=== PATIENT | male | born 1960 | race Caucasian/White ===

== ENCOUNTER 2022-03-16 20:20 | Inpatient (IN) | payer OTHER ==
[~2022-03-16] VITALS: Ht 180.3 cm; Wt 119.0 kg
[2022-03-16] MEDS ORDERED: VENL150ER PO (21:10)
[2022-03-16] MEDS ORDERED: OXYB5 PO (21:10)
[2022-03-16] MEDS ORDERED: DONEPEZIL HCL10 MG PO (21:11)
[2022-03-16] MEDS ORDERED: ZESTRIL40 MG PO (21:11)
[2022-03-16] MEDS ORDERED: GLIMEPIRIDE4 MG PO (21:12)
[2022-03-16] MEDS ORDERED: Crestor40 MG PO (21:12)
[2022-03-16] MEDS ORDERED: OZEMPIC1 MG/0.72 (21:13)
[2022-03-16 21:16] LABS: BASOPHILS ABSOLUTE AUTO 0.03 K/mm3 (0.00-0.23); BASOPHILS PERCENT AUTO 0 % (0-2); EOSINOPHILS PERCENT AUTO 0 % (0-6); Hematocrit 45.4 % (37.0-53.0); Hemoglobin 15.7 g/dL (13.5-17.5); IMMATURE GRAN ABSOLUTE AUTO 0.03 K/mm3 (0.00-0.10); IMMATURE GRAN PERCENT AUTO 0 % (0-1); LYMPHOCYTES ABSOLUTE AUTO 0.86 K/mm3 (0.84-5.20); LYMPHOCYTES PERCENT AUTO 6 % (21-46); MONOCYTES ABSOLUTE AUTO 0.79 K/mm3 (0.16-1.47); MONOCYTES PERCENT AUTO 5 % (4-13); Mean Corpuscular HGB 30.7 pg (26.0-34.0); Mean Corpuscular HGB Conc 34.6 g/dL (31.5-36.5); Mean Corpuscular Volume 89 fL (80-100); Mean Platelet Volume 10.1 fL (9.1-12.4); NEUTROPHILS PERCENT AUTO 88 % (41-73); Platelet Count 308 K/mm3 (150-400); RDW Coefficient Variation 12.6 % (11.7-14.2); RDW Standard Deviation 41.1 fL (35.1-46.3); Red Blood Cell Count 5.12 M/mm3 (4.30-5.90); White Blood Cell Count 14.71 K/mm3 (4.00-11.30)
[2022-03-16 21:19] LABS: Source, Urine Clean Catch
[2022-03-16 21:21] LABS: Appearance, Urine Clear (Clear); Blood, Urine 1+ (Neg); Color, Urine Amber (P-Yellow); Glucose Qualitative, Urine 2+ (Neg); Ketones, Urine 1+ (Neg); Leukocyte Esterase, Urine 1+ (Neg); Nitrite, Urine Neg (Neg); Protein, Urine 2+ (Neg); Urobilinogen, Urine 1+ (Normal)
[2022-03-16 21:31] LABS: Bilirubin, Urine 1+ (Neg)
[2022-03-16 21:33] LABS: Bacteria Many /hpf; Hyaline Casts 0-2 /lpf (0-2); Mucus Light (0-Heavy); Squamous Epithelial Cells Few /hpf (Few)
[2022-03-16 21:33] LABS: Albumin/Globulin Ratio 0.7 (0.8-1.8); Bilirubin, Total 1.1 mg/dL (0.1-1.0); Bun/Creatinine Ratio 18.5 (12.0-20.0); Calcium, Blood 8.9 mg/dL (8.5-10.1); Creatinine, Blood 0.92 mg/dL (0.60-1.20); Globulin, Blood 4.3 g/dL (2.2-4.0); Potassium, Blood 3.6 mmol/L (3.5-5.5); Total Protein, Blood 7.3 g/dL (6.4-8.2)
[2022-03-16 21:36] LABS: International Normalized Ratio 1.14; Prothrombin Time Results 11.9 Sec (9.7-11.5)
[2022-03-17] MEDS ORDERED: AMLO10 PO (00:02)
[2022-03-17] MEDS ORDERED: CLOP75 PO (00:02)
[2022-03-17] MEDS ORDERED: METF500 PO (00:02)
[2022-03-17 04:23] LABS: BASOPHILS ABSOLUTE AUTO 0.04 K/mm3 (0.00-0.23); BASOPHILS PERCENT AUTO 0 % (0-2); EOSINOPHILS PERCENT AUTO 0 % (0-6); Hematocrit 42.7 % (37.0-53.0); Hemoglobin 14.5 g/dL (13.5-17.5); IMMATURE GRAN ABSOLUTE AUTO 0.06 K/mm3 (0.00-0.10); IMMATURE GRAN PERCENT AUTO 0 % (0-1); LYMPHOCYTES PERCENT AUTO 6 % (21-46); MONOCYTES ABSOLUTE AUTO 0.77 K/mm3 (0.16-1.47); MONOCYTES PERCENT AUTO 4 % (4-13); Mean Corpuscular HGB 30.3 pg (26.0-34.0); Mean Corpuscular Volume 89 fL (80-100); Mean Platelet Volume 10.4 fL (9.1-12.4); NEUTROPHILS ABSOLUTE AUTO 17.91 K/mm3 (1.96-9.15); NEUTROPHILS PERCENT AUTO 90 % (41-73); Platelet Count 298 K/mm3 (150-400); RDW Coefficient Variation 12.7 % (11.7-14.2); RDW Standard Deviation 41.8 fL (35.1-46.3); Red Blood Cell Count 4.78 M/mm3 (4.30-5.90); White Blood Cell Count 19.98 K/mm3 (4.00-11.30)
[2022-03-17 04:55] LABS: Albumin, Blood 2.7 g/dL (3.4-5.0); Albumin/Globulin Ratio 0.7 (0.8-1.8); Bilirubin, Total 1.3 mg/dL (0.1-1.0); Bun/Creatinine Ratio 25.9 (12.0-20.0); Calcium, Blood 8.7 mg/dL (8.5-10.1); Creatinine, Blood 0.77 mg/dL (0.60-1.20); Globulin, Blood 3.9 g/dL (2.2-4.0); Magnesium, Blood 1.6 mg/dL (1.6-2.4); Potassium, Blood 3.7 mmol/L (3.5-5.5); Total Protein, Blood 6.6 g/dL (6.4-8.2)
--- NOTE | 2022-03-17 06:06 | NUR ---
admit note/shift summary Pt arrived to pcu from ed via ed stretcher at approx midnight. Pt was slid by 5 staff from ed stretcher to pcu bed. pt accompanied by . Pt alert but forgetful. answered most history questions, states pt has short term memory issues at baseline. Arrived on 4l nc. vss. Abd firm, tender. Pt c/o of 3/10 pain during noc but refused pain meds. Pt states, "ill wait until its a 5". Stood at side of bed to use urinal, requested male help. Fluids infused per jul. Abx infused per jul. pt oriented to room, call light. remained npo per orders for possible surgery in am.
--- NOTE | 2022-03-17 11:59 | NUR ---
CARE ASSUMPTION: ASSUMED CARE OF PT THIS AM APPROX 0700 AFTER RECEIVING REPORT FROM AYAKA ARZATE. PT'S SPOUSE REPORTS PT HAVING HX OF SHORT TERM MEMORY PROBLEMS, PT HAS BEEN A&Ox4 T/OUT THE MORNING. PT ANSWERING QUESTIONS APPROPRIATELY, COOPERATIVE WITH CARE. PT HAS COMPLETED 3RD LITER OF FLUIDS. LS CLEAR, DIM W/FAINT CRACKLES IN BASES. PT W/SHALLOW, TACHYPNEIC RESPIRATIONS. ST ON MONITOR, DENIES CP. ABDOMEN FIRM, TENDER TO PALPATION, STATES PAIN MOSTLY ON SIDES OF ABD, MEDICATED PER EMAR. PT SBA FOR URINAL USE. PT HAS BEEN NPO SINCE MIDNIGHT, PENDING SURGICAL INTERVENTION THIS AFTERNOON. AT THIS TIME, PT RESTING IN BED W/SPOUSE AT BEDSIDE. CALL LIGHT WITHIN REACH. WILL CONTINUE TO MONITOR AND TREAT ACCORDINGLY.
--- NOTE | 2022-03-17 13:11 | NUR ---
UPDATE: PT TO DAY SURGERY AT APPROX 1230.
--- NOTE | 2022-03-17 13:12 | NUR ---
THE PATIENT WAS BROUGHT TO DAY SURGERY FOR HIS PROCEDURE.
--- NOTE | 2022-03-17 15:03 | NUR ---
03/17/22 1503 Manuel Roldan PROCEDURE WENT FROM LAPAROSCOPIC TO OPEN @ [id number]
--- NOTE | 2022-03-17 18:28 | NUR ---
PT TRANSFER: PT TRANSFERED TO ICU AFTER SURGERY. REPORT GIVEN TO AYAKA OLSEN WHO ASSUMED CARE OF PT IN ICU.
--- NOTE | 2022-03-17 18:43 | NUR ---
PT ADMITTED TO ICU 3 FROM OR S/P RIGHT HEMICOLECTOMY AT 1658. REPORT TAKEN FROM DR TRAYLOR. PT ARRIVED ON VENT; DR UGAJARDO AT BEDSIDE. VENT:18/640/60%/8, LUNGS CLEAR T/O. ETT 24CM @TEETH, 7.5. ABD VERY DISTENDED WITH HYPERACTIVE TYMPANIC BT'S T/O. OG DIFFICULT TO PLACE, OG IN GE JUNCTION, DR GUAJARDO AWARE. WILL ATTEMPT TO ADVANCE FURTHER TOMORROW AM PER DR GUAJARDO. OG PLACED TO LIS. LARGE MID LINE RODRIGO DRAIN/DRSG C/D/I. VILLAR CATH DRAINING CLEAR YELLOW URINE. LR AT 100CC, TO CONTINUE FOR ONE ADDITIONAL LITER AFTER OR'S LR COMPLETE. PROPOFOL STARTED AT 30MCG. PT MINIMALLY RESPONSIVE; PER DR HARVEY PT WILL BE PARALYZED FOR AT LEAST 1 HR. POWERGLIDE PLACED TO OPAL.
[2022-03-18 03:43] LABS: Hematocrit 36.7 % (37.0-53.0); Hemoglobin 12.3 g/dL (13.5-17.5); Mean Corpuscular HGB 30.4 pg (26.0-34.0); Mean Corpuscular HGB Conc 33.5 g/dL (31.5-36.5); Mean Corpuscular Volume 91 fL (80-100); Mean Platelet Volume 10.9 fL (9.1-12.4); Platelet Count 268 K/mm3 (150-400); RDW Standard Deviation 43.2 fL (35.1-46.3); Red Blood Cell Count 4.05 M/mm3 (4.30-5.90); White Blood Cell Count 13.31 K/mm3 (4.00-11.30)
[2022-03-18 04:09] LABS: Bun/Creatinine Ratio 31.9 (12.0-20.0); Calcium, Blood 8.3 mg/dL (8.5-10.1); Creatinine, Blood 0.82 mg/dL (0.60-1.20); Potassium, Blood 3.6 mmol/L (3.5-5.5)
--- NOTE | 2022-03-18 07:27 | NUR ---
Assumed care of pt at 0700. Report recieved from Andres MARLEY. Pt receiving propofol at 40 mcg/kg/min, dosing weight 119 kg. On assessment, pt opened eyes and started grimacing. When asked if he is having pain, pt nods head "yes". Nods "no" when asked if pain source is abdomen, chest, or back. Nods head "yes" when asked if pain source is head. 7.5 cm ETT at expected placement of 24 cm at teeth. Vent settings ACVC 18/640/8/30%. SpO2 90% or greater. Lungs clear t/o, diminished in bases. Sinus rhythm per monitor, rate 85. BP stable.
--- NOTE | 2022-03-18 09:31 | NUR ---
Patient has been transferred to room ICU 13 from ICU 3, remaining in same bed as before. Tolerated well. Family in ICU 13 visiting with patient at this time. Update given. Fresh ice packs placed to bilateral groin and subclavian. Temp is currently 100.9 per rectal probe. This temperature correlates with pt's oral temperature.
--- NOTE | 2022-03-18 11:10 | NUR ---
Patient extubated at 1100 by RT Perez. Tolerated extubation well. Pt is wide awake and talking to his family. SpO2 98%. Restraints removed. OG tube removed at time of extubation as well. Call placed to Dr Wei to ask if he would like NG inserted. Provider states NG is not needed at this time.
--- NOTE | 2022-03-18 12:05 | NUR ---
Noted order from Dr Jorge for 60 meq potassium. Discussed with Dr Jorge. Plan to give patient this amount of potassium as pt is borderline low and NPO.
--- NOTE | 2022-03-18 12:52 | NUR ---
Upon receiving a referral for spiritual care, I visit pt. Pt tells me about his medical issues, his family and his spiritual journey from [employer] to Religious. I Ptovide threapeutic listening and prayer. Pt responds well and shows signs of an elevated mood.
--- NOTE | 2022-03-18 15:34 | NUR ---
Patient lifted into recliner. Pt able to stand and march in place with min assist. Pt steady on feet. Reports that he does get lightheaded with position changes and activity. Dr Jorge in to see patient, states patient may be surical floor status without telemetry.
--- NOTE | 2022-03-18 17:00 | NUR ---
SUMMARY Neuro: Pt A&O x 4. Answers questions, follows commands, verbalizes needs. Pleasant and cooperative with care. Pt states poor short term memory, however appears very receptive to education provided. Pt states pain that is tolerable and currently at an acceptable level. Musculoskeletal: Moves all extremities with equal strength and range of motion. Patient worked with PT today to ambulate approx 40 feet in room. Tolerated activity well. Respiratory: Lungs clear, dim in bases. SpO2 90% or greater with room air. Extubated this shift. Given incentive spirometer and educated on use. Pt has been observed using IS independently. Cardiac: Telemetry no longer ordered. HR regular. Edema unchanged from initial assessment. GI: Absent BT. Pt denies passing flatus. Remains strict NPO. : Booth catheter in place, patent and draining clear yellow urine. Skin: Unchanged from initial assessment. Psychosocial: Pt happy, pleasant and cooperative with care. Visiting with spouse at bedside.
[2022-03-19 03:35] LABS: Hematocrit 34.3 % (37.0-53.0); Hemoglobin 11.8 g/dL (13.5-17.5); Mean Corpuscular HGB 31.1 pg (26.0-34.0); Mean Corpuscular HGB Conc 34.4 g/dL (31.5-36.5); Mean Corpuscular Volume 90 fL (80-100); Mean Platelet Volume 10.3 fL (9.1-12.4); Platelet Count 272 K/mm3 (150-400); RDW Standard Deviation 43.1 fL (35.1-46.3)
[2022-03-19 03:54] LABS: Bun/Creatinine Ratio 33.1 (12.0-20.0); Calcium, Blood 8.5 mg/dL (8.5-10.1); Creatinine, Blood 0.76 mg/dL (0.60-1.20); Phosphorus, Blood 2.1 mg/dL (2.5-4.9); Potassium, Blood 3.8 mmol/L (3.5-5.5)
--- NOTE | 2022-03-19 05:39 | NUR ---
END OF SHIFT SUMMARY PT HAS HAD NO OVERNIGHT EVENTS. DURING FIRST ASSMENT I AUSCULTATED BOWEL SOUNDS AND PT HAS STATED HE HAS PASSED GAS. HE HAS BEEN LAMBERT STABLE. HE DID COMPLAIN OF PAIN TRIED 25MCC OF FENT THAT DIDNT SEEM TO WORK THEN TRIED DILAUDID AT FIRST I GAVE HALF AND THEN THE WHOLE 1MG THAT FINALY DID THE TRICK WILL CONTINUE TO MONITOR AND REPORT OFF TO ONCOMING RN
--- NOTE | 2022-03-19 08:00 | NUR ---
Assumed care of pt at 0700, report received from Irais MARLEY. Pt alert. Answers questions, follows commands, verbalizes needs. Pleasant and cooperative with care. Lethargic. States he did not sleep well last night and states he wants to stay in bed and try to sleep. SpO2 90% or greater with room air.
[2022-03-19 12:17] LABS: Source, Urine Clean Catch
--- NOTE | 2022-03-19 12:18 | NUR ---
This RN entered room and found patient to be diaphoretic. Temp 99.4 oral. Pt states the ambient temperature is acceptable, but he feels he is hot. Offered cool wash cloth and fan, pt accepts these to help with diaphoresis. Noted that pt continues to be quite lethargic and more weak compared to yesterday. Call placed to Dr Shea to notify. New orders received.
[2022-03-19 12:19] LABS: Appearance, Urine Clear (Clear); Bilirubin, Urine Neg (Neg); Blood, Urine 5+ (Neg); Color, Urine Yellow (P-Yellow); Glucose Qualitative, Urine Neg (Neg); Ketones, Urine Neg (Neg); Leukocyte Esterase, Urine Neg (Neg); Nitrite, Urine Neg (Neg); Protein, Urine 1+ (Neg); Urobilinogen, Urine NORM (Normal)
[2022-03-19 13:21] LABS: BASOPHILS ABSOLUTE AUTO 0.04 K/mm3 (0.00-0.23); BASOPHILS PERCENT AUTO 0 % (0-2); EOSINOPHILS ABSOLUTE AUTO 0.13 K/mm3 (0.00-0.68); EOSINOPHILS PERCENT AUTO 1 % (0-6); Hematocrit 41.4 % (37.0-53.0); Hemoglobin 14.1 g/dL (13.5-17.5); IMMATURE GRAN PERCENT AUTO 1 % (0-1); LYMPHOCYTES ABSOLUTE AUTO 1.73 K/mm3 (0.84-5.20); LYMPHOCYTES PERCENT AUTO 12 % (21-46); MONOCYTES ABSOLUTE AUTO 0.74 K/mm3 (0.16-1.47); MONOCYTES PERCENT AUTO 5 % (4-13); Mean Corpuscular HGB 30.7 pg (26.0-34.0); Mean Corpuscular HGB Conc 34.1 g/dL (31.5-36.5); Mean Corpuscular Volume 90 fL (80-100); Mean Platelet Volume 10.2 fL (9.1-12.4); NEUTROPHILS ABSOLUTE AUTO 11.63 K/mm3 (1.96-9.15); NEUTROPHILS PERCENT AUTO 81 % (41-73); Platelet Count 338 K/mm3 (150-400); RDW Standard Deviation 42.9 fL (35.1-46.3); White Blood Cell Count 14.37 K/mm3 (4.00-11.30)
[2022-03-19 13:28] LABS: Bacteria Few /hpf; Squamous Epithelial Cells Rare /hpf (Few); Uric Acid Crystals Many /hpf
[2022-03-19 13:29] LABS: Mucus Light (0-Heavy); Renal Epithelial Rare /hpf (0-Rare)
[2022-03-19 13:44] LABS: Albumin, Blood 1.9 g/dL (3.4-5.0); Anion Gap 9 mmol/L (6-16); Blood Urea Nitrogen 23 mg/dL (8-24); Bun/Creatinine Ratio 33.2 (12.0-20.0); CO2, Blood 21 mmol/L (21-32); Calcium, Blood 8.5 mg/dL (8.5-10.1); Chloride, Blood 110 mmol/L (98-108); Creatinine, Blood 0.69 mg/dL (0.60-1.20); Glomerular Filtration Rate 104 (60-); Glucose, Blood 156 mg/dL (70-99); Phosphorus, Blood 3.7 mg/dL (2.5-4.9); Potassium, Blood 4.3 mmol/L (3.5-5.5); Sodium, Blood 140 mmol/L (136-145)
--- NOTE | 2022-03-19 15:17 | NUR ---
Call placed to Dr Wei to notify of increased patient pain frequency and increased med use. Also discussed that patient has been diaphoretic and clammy. Also notable weakness and lethargy compared to yesterday. Discussed that per this RN's assessment, abdomen is larger than yesterday. Provider in to see patient shortly afterwards. Reviews extent of infection present in abdomen during surgery and states these are typical findings and recommends continued bowel rest, however patient can occasionally have ice chips as tolerated. Ok to proceed without NG tube at this time but will consider if pt becomes nauseous. Provider also reviewed pathology results with family.
--- NOTE | 2022-03-19 18:17 | NUR ---
SHIFT SUMMARY Surgical floor status patient without telemetry ordered. Neuro: A&O x 4. Answers questions, follows commands, verbalizes needs. Pleasant and cooperative with care. Required more pain medication this shift, Dr Wei aware. Pt having abdominal pain in area of incision. Resolves with dilaudid. Musc: Moves all extremities with equal strength and range of motion. More lethargic and weak than noted yesterday. Worked with physical therapy today. Able to stand and transfer between bed and multiple chairs with gait belt, walker, and one person assist. Able to perform ADLs- brushing teeth, washing face. Respiratory: Lungs clear, dim in bases. Pt set up with BiPAP for use while sleeping. Scant sputum this shift. Intermittently required 2 LPM NC for SpO2 90% or greater. Continuous SpO2 monitoring in place. Cardiac: No changes to initial assessment GI: Normal BT. ABD is severe distended and appears larger than noted yesterday. Dr Wei aware, provider states this is due to the previously discovered diffuse peritonitis. Plan to continue to monitor patient. : Excellent urine output today. Booth catheter removed 1800. Pt has not voided urine since removal. Urinal within reach. Skin: No changes to initial assessment Psychosocial: Patient visited with family for majority of afternoon. Updated on plan of care. Pt states that he did not sleep last night, Dr Shea aware.
[2022-03-20 04:20] LABS: Hemoglobin 14.5 g/dL (13.5-17.5); Mean Corpuscular HGB 30.1 pg (26.0-34.0); Mean Corpuscular Volume 91 fL (80-100); Mean Platelet Volume 10.3 fL (9.1-12.4); Platelet Count 342 K/mm3 (150-400); RDW Coefficient Variation 13.1 % (11.7-14.2); RDW Standard Deviation 44.1 fL (35.1-46.3); Red Blood Cell Count 4.82 M/mm3 (4.30-5.90); White Blood Cell Count 15.74 K/mm3 (4.00-11.30)
[2022-03-20 04:37] LABS: Albumin, Blood 1.9 g/dL (3.4-5.0); Anion Gap 9 mmol/L (6-16); Blood Urea Nitrogen 21 mg/dL (8-24); Bun/Creatinine Ratio 30.9 (12.0-20.0); CO2, Blood 26 mmol/L (21-32); Calcium, Blood 8.5 mg/dL (8.5-10.1); Chloride, Blood 108 mmol/L (98-108); Creatinine, Blood 0.68 mg/dL (0.60-1.20); Glomerular Filtration Rate 104 (60-); Glucose, Blood 157 mg/dL (70-99); Phosphorus, Blood 3.4 mg/dL (2.5-4.9); Potassium, Blood 3.7 mmol/L (3.5-5.5); Sodium, Blood 143 mmol/L (136-145)
--- NOTE | 2022-03-20 05:38 | NUR ---
SHIFT SUMMARY: PT. REMAINED STABLE OVERNIGHT, BP WAS STABLE AND WNL AND HR WAS 90S OVERNIGHT. PT. SATURATED ABOVE 92% WHILE ON BIPAP. STOMACH IS STILL HARD TO PALPATION AND PT. REQUIRED PAIN MEDICATION X2 OVERNIGHT. PT. ALSO COMPLAINING OF BEING HOT ALTHOUGH HE WAS AFEBRILE OVERNIGHT. PT. RESTING IN BED WITH CALL LIGHT WITHIN REACH.
--- NOTE | 2022-03-20 08:48 | NUR ---
Assumed care of pt at 0700. Report received from Luis Alberto MARLEY. Pt A&O x 4. Answers questions, follows commands, verbalizes needs. Pleasant and cooperative with care. Offered to get in chair, pt states that he would like to walk. Pt ambulated from bed to hallway and back using gait belt, walker and min assist. Weak, but otherwise tolerated activity well without lightheadedness or dizziness. 0.5 mg dilaudid given for pain. Plan for patient to transfer to room 227.
--- NOTE | 2022-03-20 10:32 | NUR ---
Transferred to [facility] by this RN. Chart, medications, belonging transferred with patient. Spouse at bedside at time of transfer. Care tranferred to Ashlee MARLEY.
--- NOTE | 2022-03-20 18:47 | NUR ---
SHIFT SUMMARY PT TRANSFERRED FROM ICU. MIDLINE RODRIGO DRESSING CDI. PT AMBULATED WITH PHYSICAL THERAPY AND GETTING IV ABX. VSS.
--- NOTE | 2022-03-21 04:14 | NUR ---
SHIFT SUMMARY PT AOX3, FORGETFUL, HAS SHORT TERM MEMORY LOSS. PLEASANT AND COOPERATIVE WITH CARE. POD4 LAP TO OPEN ABD EXP WITH R HEMICOLECTOMY FOR CECAL PERFORATION. PT WAS TRANSFERED FROM ICU YESTERDAY. PT STARTED CLEAR LIQ DIET, TOLERATING IT WELL. PT 1 EPISODE OF NAUSEA AT MIDNIGHT, MEDICATED WITH ZOFRAN WITH RELEIF. PT REPORTS MODERATE PAIN, MEDICATED WITH DILAUDID 0.5MG. USE URINAL WITH ASSISTANCE, VOIDING. LUNGS DIM BUT CLEAR. BIPAP AT NIGHT. ROOMAIR WHEN AWAKE, SATS WNL. CALL LIGHT WITHIN REACH. WILL PROVIDE REPORT TO ONCOMING NURSE.
--- NOTE | 2022-03-21 16:26 | NUR ---
SHIFT SUMMARY POD 4 OPEN R ELISEO COLECTOMY. PT UP AND AMBULATING IN THE HALLWAY TODAY. TOLERATING DIET WELL, PASSING GAS, NO BOWEL MOVEMENT. PT HAS BEEN IN A GOOD MOOD TODAY, FAMILY VISITING TO CELEBRATE BIRTHDAY. MIDLINE PICCO REMAINS CDI. PT DENIES FURTHER NEEDS WILL CONTINUE TO ADVANCE DIET PER ORDERS AND ENCOURAGE AMBULATION.
--- NOTE | 2022-03-22 05:54 | NUR ---
SHIFT SUMMARY NO ACUTE CHANGES OVERNIGHT. POD5 OPEN R ELISEO COLECTOMY WITH MIDLINE RODRIGO DRESSING REMAIN CDI AND 2 LAP SITE WITH FRANKIE OPEN TO AIR. PT REPORTS MIN-MOD PAIN OVERNIGHT. MEDICATED WITH 2 TAB NORCO (5/325) BEFORE BED AND THIS MORNING. PT HAD A DOSE OF DILAUDID 0.5ML AT MIDNIGHT FOR BREAKTHROUGH. PT REPORTS SLEPT GOOD OVERNIGHT. TOLERATING FULL LIQ DIET. DENIES NAUSEA AND VOMITING. ABD MOD DISTENDED. PASSING FLATUS. NO BM YET. VSS. IV ABX ADMINSITERED. CALL LIGHT WIHTIN REACH. WILL PROVIDE REPORT TO ONCOMING NURSE.
[2022-03-22 06:06] LABS: BASOPHILS ABSOLUTE AUTO 0.06 K/mm3 (0.00-0.23); BASOPHILS PERCENT AUTO 1 % (0-2); EOSINOPHILS ABSOLUTE AUTO 0.45 K/mm3 (0.00-0.68); EOSINOPHILS PERCENT AUTO 3 % (0-6); Hematocrit 39.5 % (37.0-53.0); Hemoglobin 12.6 g/dL (13.5-17.5); IMMATURE GRAN ABSOLUTE AUTO 0.34 K/mm3 (0.00-0.10); IMMATURE GRAN PERCENT AUTO 3 % (0-1); LYMPHOCYTES ABSOLUTE AUTO 2.36 K/mm3 (0.84-5.20); LYMPHOCYTES PERCENT AUTO 18 % (21-46); MONOCYTES ABSOLUTE AUTO 1.05 K/mm3 (0.16-1.47); MONOCYTES PERCENT AUTO 8 % (4-13); Mean Corpuscular HGB 29.6 pg (26.0-34.0); Mean Corpuscular HGB Conc 31.9 g/dL (31.5-36.5); Mean Corpuscular Volume 93 fL (80-100); NEUTROPHILS ABSOLUTE AUTO 8.84 K/mm3 (1.96-9.15); NEUTROPHILS PERCENT AUTO 68 % (41-73); Platelet Count 354 K/mm3 (150-400); RDW Coefficient Variation 13.1 % (11.7-14.2); RDW Standard Deviation 44.3 fL (35.1-46.3); Red Blood Cell Count 4.25 M/mm3 (4.30-5.90)
[2022-03-22 06:29] LABS: Bun/Creatinine Ratio 18.6 (12.0-20.0); Calcium, Blood 8.7 mg/dL (8.5-10.1); Creatinine, Blood 0.59 mg/dL (0.60-1.20); Potassium, Blood 3.7 mmol/L (3.5-5.5)
--- NOTE | 2022-03-22 17:18 | NUR ---
SHIFT SUMMARY POD 5 R ELISEO COLECTOMY. PT HAS BEEN UP AND AMBULATING IN THE HALLS FREQUENTLY DURING SHIFT.PAIN CONTROLLED PER EMAR. PATIENT REPORTS PASSING FLATUS NO BM. UP IN CHAIR FOR MUCH OF SHIFT. PT EXPRESSES EXCITIMENT AT POSSIBILITY OF DISCHARGING SOON. MIDLINE DRESSING REMAINS CDI. PT CALLS APPROPRIATLY. DENIES FURTHER NEEDS AT THIS TIME.
--- NOTE | 2022-03-23 05:56 | NUR ---
SHIFT SUMMARY NO ACUTE CHANGES OVERNIGHT. PT PASSING FLATUS. BT ACTIVE. NO BM YET TONINGHT. VOIDING. AOX3, FORGETFUL (BASELINE-SHORT TERM MEMORY LOSS). CALLS APPROPRIATELY. PT REPORTS ABD PAIN MIN TO MODERATE LEVEL. PAIN MANAGED WITH 7.5MG NORCO. TOLERATING PO INTAKE. DENIES N/V. VSS. IV ABX ADMINISTERED. CALL LIGHT WITHIN REACH. WILL PROVIDE REPORT TO ONCOMING NURSE.
[2022-03-23] MEDS ORDERED: Aspir 8181 MG PO (11:03)
[2022-03-23] MEDS ORDERED: Norco 7.5-3251 EACH PO (11:04)
[2022-03-23] MEDS ORDERED: VISBIOME 112.51 EACH PO (11:05)
[2022-03-23] MEDS ORDERED: Senna-Extra17.2 MG PO (11:05)
[2022-03-23] MEDS ORDERED: AMOCLA875 PO (11:06)
--- NOTE | 2022-03-23 11:13 | NUR ---
FAXED PRESCRIPTIONS TO [facility] RODRIGUE[facility].
--- NOTE | 2022-03-23 11:47 | NUR ---
dr mishra in to see pt.
--- NOTE | 2022-03-23 13:00 | NUR ---
discharging REVIEWED DC INSTRUCTIONS W/PT AND SPOUSE. SPOUSE VERBALIZED UNDERSTANDING OF DC INSTRUCTIONS. DC'D POWER GLIDE, CATHETER INTACT. SPOUSE SIGNED DC PAPERWORK AND WAS PROVIDED DC FOLDER AND DRESSING CHANGES. PT AWAITING WC OUT TO CAR.
--- NOTE | 2022-03-23 13:18 | NUR ---
PT LEFT UNIT IN WC SPOUSE HAD POSSESSIONS AND DC PAPERWORK IN HAND. PT LEFT UNIT IN WC TO RIDE WAITING OUTSIDE.
== END 2022-03-23 13:15 | disposition home or self-care (01) | DRG 853 ==
LOC: ER 20:20 → ICUW 23:50 → PCU 23:50 → ICUE 23:50 → PCU 03-17 00:47 → ICUE 03-17 16:56 → ICUW 03-18 07:10 → SURS 03-20 10:35
PROVIDERS: Internal Medicine; Internal Medicine Critical Care Medicine; Student in an Organized Health Care Education/Training Program; Surgery; ADMIT Student in an Organized Health Care Education/Training Program
PROC: 5A1935Z Respiratory Ventilation, Less than 24 Consecutive Hours (ICD-10-PCS; 2022-03-16)
PROC: 0DTF0ZZ Resection of Right Large Intestine, Open Approach (ICD-10-PCS; principal; 2022-03-17 12:30)
DX: A41.51 Sepsis due to Escherichia coli [E. coli] (principal); K35.32 Acute appendicitis with perforation, localized peritonitis, and gangrene, without abscess; K57.80 Diverticulitis of intestine, part unspecified, with perforation and abscess without bleeding; K35.20 Acute appendicitis with generalized peritonitis, without abscess; E87.20 Acidosis, unspecified; R65.20 Severe sepsis without septic shock; R41.89 Other symptoms and signs involving cognitive functions and awareness; E11.9 Type 2 diabetes mellitus without complications; I10 Essential (primary) hypertension; F03.90 Unspecified dementia, unspecified severity, without behavioral disturbance, psychotic disturbance, mood disturbance, and anxiety; E78.5 Hyperlipidemia, unspecified; G47.33 Obstructive sleep apnea (adult) (pediatric); E83.39 Other disorders of phosphorus metabolism; Z79.899 Other long term (current) drug therapy; Z86.73 Personal history of transient ischemic attack (TIA), and cerebral infarction without residual deficits; Z98.890 Other specified postprocedural states; Z99.81 Dependence on supplemental oxygen; Z79.02 Long term (current) use of antithrombotics/antiplatelets; Z79.84 Long term (current) use of oral hypoglycemic drugs
CPT/HCPCS: 36415; 71045; 74019; 80048; 80053; 80069; 81001; 82947; 83605; 83690; 83735; 83880; 84100; 84484; 85025; 85027; 85610; 85730; 87040; 87077; 87086; 87186; 88307; 93005; 93010; 94002; 94003; 94660; 94760; 94762; 96374; 96375; 97110; 97116; 97162; 97530; 99285-25; A9270; C1751; J1100; J1170; J1650; J1885; J2250; J2270; J2405; J2543; J2704; J2795; J3010; J3480; J7030; J7050; J7060; J7120